=== PATIENT | female | born 1985 | race Caucasian/White ===

== ENCOUNTER 2018-01-12 11:51 | Outpatient (CLI) | payer BC, SELFPAY ==
[2018-01-12 13:48] LABS: TSH (W/Ref FT4) 1.51 uIU/mL (0.358-3.74)
== END 2018-01-12 11:52 ==
PROVIDERS: PCP Family Medicine; Visit Provider Advanced Practice Midwife
DX: E03.9 Hypothyroidism, unspecified (principal)
CPT/HCPCS: 36415; 84443

== ENCOUNTER 2018-01-12 16:22 | Outpatient (REF) | payer BC, SELFPAY ==
--- NOTE | 2018-01-12 11:30 | PAPFT_PTH ---
PATIENT: LEELA REDMOND LOC: [facility] U#:[id number] AGE/SX: 32/F ROOM: RE01/12/[address]: Edwin Nguyễn RN : 1985 BED: DIS: 01/12/2018 SPEC #: [id number] RECD: 01/12/18 18:07 STATUS: CLARKE RERayray #: [id number] PHUC: 01/12/18 11:[address]: Edwin Nguyễn DEPT: [facility] Cytology RECD BY: Sharyn White ENTERED: 01/12/18 18:07 SP TYPE: PAPFT OTHR DR: Edilia England Tissues: 1 - CX/ENDOCX FOR PAP SMEARS Procedures: PAP THIN PREP/[facility] Screening HPV DNA PROBE Comments: [id number]
== END 2018-01-12 16:23 ==
LOC: LBN 16:22
PROVIDERS: PCP Family Medicine; Visit Provider Advanced Practice Midwife
DX: Z12.4 Encounter for screening for malignant neoplasm of cervix (principal); Z11.51 Encounter for screening for human papillomavirus (HPV)
CPT/HCPCS: 88142; 87624